=== PATIENT | female | born 1960 | race Two or more races ===

== ENCOUNTER → 2022-11-26 20:30 | Outpatient (REF) | payer OTHER, SELFPAY | LOC: HO.SL 20:30 | PROVIDERS: Visit Provider Hospitalist | DX: G47.31 Primary central sleep apnea (principal); G47.33 Obstructive sleep apnea (adult) (pediatric); R06.89 Other abnormalities of breathing | CPT/HCPCS: 95810 ==

== ENCOUNTER → 2022-11-26 22:47 | Outpatient (BNV) | payer OTHER, SELFPAY | PROVIDERS: Visit Provider Internal Medicine | DX: G47.33 Obstructive sleep apnea (adult) (pediatric) (principal) | CPT/HCPCS: 95810 ==

== ENCOUNTER 2023-07-12 10:42 | Outpatient (AMB) | payer OTHER, SELFPAY ==
[2023-07-12 10:44] VITALS: BP 122/78; PULSE 73; O2SAT 96; BMI 29.9
--- NOTE | 2023-07-12 10:44 | MHC.OFFVIS ---
Vital Signs 07/12/23 10:44 Height 5 ft 4 in Weight 174 lb BMI 29.9 BP 122/78 Blood Pressure Location Lt brachial Pulse 73 Pulse Source Doppler Pulse Oximetry (%) 96 Oxygen Delivery Method Room Air Intake Visit Reasons: asthma Allergies No Known Allergies Allergy (Verified 12/31/22 14:26) HPI Comments Details: The patient is a 63-year-old woman with a known history of complex sleep apnea along with hypoventilation. Apparently the patient had been having worsening daytime drowsiness and underwent an in-lab sleep study in 2015 demonstrating an apnea-hypopnea index of 13.7 which were mainly Obstructive sleep apnea with also central apneas along with evidence of hypercarbia due to hypoventilation. The patient was able to be titrated initially on PAP therapy. CPAP did not improve her hypercarbia and subsequently placed on BiPAP. The BiPAP settings were a pretty high at 20 8/10. Patient had been trying to use it but felt very uncomfortable using the BiPAP. She tried multiple masks. Although because she has not been using it she is no longer active with her [employer], [employer]. At this point the patient needs to be provided with new supplies she would need to have a repeat sleep study to confirm the diagnosis. Patient continues to have daytime drowsiness. She also complains of severe headaches. Her [place] score is elevated 12/24. Patient also has cardiovascular risk factors including hypertension. Also to note the patient has been on Suboxone. It is not clear what dose of Suboxone she was taking back in 2015 although her dose is likely a lot less this time. My suspicion is that the opiates may have been resulting in worsening hypercarbia. 07/12/2023 the patient is here for a pulmonary follow-up visit. The patient is still struggling with sleep. She still has significant headaches in the morning. she also has daytime drowsiness with an elevated [place] score of 11 of 24. she was supposed to have an in-lab sleep study. Slowly to get her active with a [employer] and also do a titration study. However, the patient did not follow through. Now she is more concerned because she is getting more symptomatic. She does have a BiPAP currently set up 20/10. She says she tries using it but the pressures are very significant for her. Therefore, she did bring her BiPAP with her. It has a BiPAP ST has a backup rate of 10. I did decrease it from 20/10 to 14/8. Hopefully she can tolerate. In the meantime I will also request a an in-lab sleep study hopefully she can get a split study in order to titrate her on the actual PAP therapy. Patient also carries A diagnosis of insomnia. She does use sleep aids. She also uses all the pain medications and those pain medications can indeed resulting worsening central apneas. This may be contributing to her breathing disturbance. [facility] Medical History (Updated 07/12/23 @ 11:10 by Mehul oJhnson MD) SANGITA (obstructive sleep apnea) Thyroid nodule Hypoventilation syndrome Central sleep apnea Social History (Updated 07/12/23 @ 10:52 by Marichuy Griffith Christiano) Years Smoked: smokes marijuana Review of Systems Const Reports daytime sleepiness, Reports difficulty sleeping and Reports headache(s) Eyes Denies change in vision ENT Denies change in voice and Reports headache(s) Card Denies chest pain and Denies dyspnea on exertion Resp Denies cough, Denies dyspnea on exertion and Denies wheezing GI Reports no additional complaints Musc Denies deformity Skin/Breast Denies rash Neuro Reports headache(s) Arben/Lymph Denies easy bleeding and Denies easy bruising Aller/Immun Denies wheezing Physical Exam Vital Signs: Last Vital Signs Pulse 73 07/12/23 10:44 BP 122/78 07/12/23 10:44 Pulse Ox 96 07/12/23 10:44 Oxygen Delivery Method Room Air 07/12/23 10:44 BMI result Body Mass Index 29.9 Const General: comfortable HEENT Head: Yes normal to inspection Eyes General: appearance normal, both eyes and all related structures Neck Neck: Yes normal visual inspection Chest Chest palpation & inspection: normal inspection of the chest Resp Effort & Inspection: normal respiratory effort Auscultation: clear to auscultation bilaterally and rhonchi right lower Cardio Rate: regular rate Rhythm: regular rhythm Heart sounds: S1 normal heart sound present and S2 normal heart sound present GI Auscultation: normal bowel sounds Skin General skin exam: no rashes or lesions noted Extrem General: Yes no clubbing, cyanosis or edema Assessment & Plan Assessment & Plan (1) Central sleep apnea: Code(s): G47.31 - Primary central sleep apnea Category: Medical (2) Hypoventilation syndrome: Code(s): R06.89 - Other abnormalities of breathing Category: Medical (3) SANGITA (obstructive sleep apnea): Code(s): G47.33 - Obstructive sleep apnea (adult) (pediatric) Category: Medical (4) Bronchitis: Code(s): J40 - Bronchitis, not specified as acute or chronic Category: Medical Plan the patient does have a significant component of obstructive sleep apnea and currently symptomatic with an elevated [place] score. Patient also appears to have a component of hypoventilation and central sleep apnea likely from her opiate use in addition to other potential factors. My suspicion is that she will be able to tolerate the PAP therapy at a lower pressure we can continue to monitor her progress to allow her to be successful in her treatment. Her last sleep study was back in 2016. Therefore in order for the patient to be active with [employer] and start getting supplies will have to request a repeat study. In the meantime she will bring machine in with her cord and will going to decrease the pressures accordingly. Recommendations: Decreased BiPAP from 20/10 to 14/8 patient will need a repeat in-lab sleep study in order to confirm her diagnosis and to titrate her pressures along with activating her with a [employer] company in order to get supplies. start Doxycycline CXR if no better Orders: Orders XR chest 2V Today J40 - Bronchitis, not specified as acute or chronic RT PSG in-lab sleep study Today RT PSG in-lab sleep study Today G47.31 - Primary central sleep apnea, R06.89 - Other abnormalities of breathing Medications: New doxycycline hyclate 100 mg PO BID 20 caps 0RF 10 days
== END 2023-07-12 11:11 | disposition home or self-care (01) ==
LOC: HO.HPS 10:42
PROVIDERS: PCP Internal Medicine; Visit Provider Hospitalist
DX: G47.31 Primary central sleep apnea (principal); R06.89 Other abnormalities of breathing; G47.33 Obstructive sleep apnea (adult) (pediatric); J40 Bronchitis, not specified as acute or chronic
CPT/HCPCS: 99214

== ENCOUNTER → 2023-07-12 10:42 | Outpatient (BNVA) | payer OTHER, SELFPAY | PROVIDERS: PCP Internal Medicine; Visit Provider Hospitalist ==